=== PATIENT | female | born 1985 | race Caucasian/White ===

== ENCOUNTER 2016-08-09 19:44 | Emergency (ER) | payer BC ==
[~2016-08-09] VITALS: Ht 160 cm; Wt 68.2 kg
[~2016-08-09 19:44] MED LIST: ANTIVERT 25MG25 MG PO; DEPO-PROVER400 MG/ML; MEDROL 4MG DOSPA4 MG PO
[2016-08-09] MEDS ORDERED: PRENATAL1 TA7 PO (19:52)
[2016-08-09 20:27] LABS: BASO % 0.4 % (0.0-2.0); EOS # 0.2 (0.0-0.7); EOS % 1.7 % (0-4.0); GRAN # 6.2 (1.4-6.5); GRAN % 61.5 % (42.2-75.2); HEMATOCRIT 40.9 % (37.0-47.0); HEMOGLOBIN 14.2 g/dl (12.5-16.0); LYMPH # 2.9 (1.2-3.4); LYMPH % 29.1 % (20.0-51.0); MEAN CELL VOLUME 85 fl (80.0-100.0); MEAN CORPUSCULAR HEMOGLOBIN 30 pg (27.0-31.0); MEAN CORPUSCULAR HGB CONC 35 g/dl (33.0-37.0); MONO # 0.7 (0.1-0.6); MONO % 7.1 % (1.7-9.3); PLATELET COUNT 169 K/mm3 (130-400); RED BLOOD COUNT 4.79 M/mm3 (4.10-5.30); REDCELL DISTRIBUTION WIDTH-CV 12.5 % (11.5-14.5); WHITE BLOOD COUNT 10.1 K/mm3 (4.8-10.8)
[2016-08-09 20:31] LABS: PH 6 (5-8); SQUAMOUS EPITHELIAL 0-2 /hpf; URINE APPEARANCE Clear; URINE BACTERIA Rare /hpf; URINE BILIRUBIN Negative (NEGATIVE); URINE BLOOD 3+ (NEGATIVE); URINE COLOR Straw; URINE GLUCOSE Negative (NEGATIVE); URINE KETONE Negative (NEGATIVE); URINE RBC 0-2 /hpf; URINE UROBILINOGEN Negative (NEGATIVE); URINE WBC 0-2 /hpf
[2016-08-09 22:21] VITALS: BP 120/70; PULSE 84; TEMP 98.4
== END 2016-08-09 22:26 | disposition home or self-care (01) ==
LOC: COL.ER 19:44
PROVIDERS: Nurse Practitioner
DX: O20.0 Threatened abortion (principal); Z3A.01 Less than 8 weeks gestation of pregnancy

== ENCOUNTER 2016-08-10 22:24 | Emergency (ER) | payer BC ==
[~2016-08-10] VITALS: Ht 157.5 cm; Wt 68.2 kg
[~2016-08-10 22:24] MED LIST changes: +PRENATAL1 TA7 PO
[2016-08-10 22:29] VITALS: TEMP 98.9
[2016-08-10 23:11] LABS: BASO % 0.3 % (0.0-2.0); EOS # 0.1 (0.0-0.7); EOS % 1.2 % (0-4.0); GRAN # 7.6 (1.4-6.5); HEMATOCRIT 39.1 % (37.0-47.0); HEMOGLOBIN 13.5 g/dl (12.5-16.0); LYMPH # 2.7 (1.2-3.4); LYMPH % 23.8 % (20.0-51.0); MEAN CELL VOLUME 86 fl (80.0-100.0); MEAN CORPUSCULAR HEMOGLOBIN 30 pg (27.0-31.0); MEAN CORPUSCULAR HGB CONC 35 g/dl (33.0-37.0); MEAN PLATELET VOLUME 11.1 fl (7.4-10.4); MONO # 0.8 (0.1-0.6); MONO % 7.5 % (1.7-9.3); PLATELET COUNT 162 K/mm3 (130-400); RED BLOOD COUNT 4.57 M/mm3 (4.10-5.30); REDCELL DISTRIBUTION WIDTH-CV 12.6 % (11.5-14.5); WHITE BLOOD COUNT 11.3 K/mm3 (4.8-10.8)
[2016-08-11] MEDS ORDERED: ULTRAM 50MG TAB50 MG PO
[2016-08-11 01:20] VITALS: BP 105/65; PULSE 83
== END 2016-08-11 01:23 | disposition home or self-care (01) ==
LOC: COL.ER 22:24
PROVIDERS: Emergency Medicine
DX: O03.9 Complete or unspecified spontaneous abortion without complication (principal)
CPT/HCPCS: J1170; J2405; J7030

== ENCOUNTER 2016-11-28 23:07 | Emergency (ER) | payer BC ==
[~2016-11-28] VITALS: Ht 157.5 cm; Wt 66.8 kg
[~2016-11-28 23:07] MED LIST changes: +ULTRAM 50MG TAB50 MG PO
[2016-11-28 23:10] VITALS: TEMP 99.3
[2016-11-28] MEDS ORDERED: DICLEGIS (23:14)
[2016-11-28 23:46] LABS: BASO % 0.3 % (0.0-2.0); EOS % 0.4 % (0-4.0); GRAN # 7.1 (1.4-6.5); GRAN % 75.6 % (42.2-75.2); HEMATOCRIT 37.7 % (37.0-47.0); LYMPH # 1.4 (1.2-3.4); LYMPH % 14.4 % (20.0-51.0); MEAN CELL VOLUME 85 fl (80.0-100.0); MEAN CORPUSCULAR HEMOGLOBIN 29 pg (27.0-31.0); MEAN CORPUSCULAR HGB CONC 35 g/dl (33.0-37.0); MEAN PLATELET VOLUME 10.8 fl (7.4-10.4); MONO # 0.9 (0.1-0.6); MONO % 9.1 % (1.7-9.3); PLATELET COUNT 155 K/mm3 (130-400); RED BLOOD COUNT 4.44 M/mm3 (4.10-5.30); REDCELL DISTRIBUTION WIDTH-CV 12.7 % (11.5-14.5); WHITE BLOOD COUNT 9.5 K/mm3 (4.8-10.8)
[2016-11-28 23:56] LABS: CALCIUM 9.1 mg/dL (8.4-10.2); CREATININE, serum 0.49 mg/dL (0.52-1.25); POTASSIUM 3.5 mmol/L (3.4-5.0)
[2016-11-29 02:38] VITALS: BP 110/68; PULSE 102
== END 2016-11-29 02:40 | disposition home or self-care (01) ==
LOC: COL.ER 23:07
PROVIDERS: Nurse Practitioner
DX: O46.8X1 Other antepartum hemorrhage, first trimester (principal); Z3A.01 Less than 8 weeks gestation of pregnancy; Z98.890 Other specified postprocedural states
CPT/HCPCS: J2765; J7030

== ENCOUNTER → 2017-09-10 | Outpatient (CLI) | payer BC ==
[~2017-09-10] MED LIST changes: +DICLEGIS
== END ==
LOC: COL.RAD 10:30
DX: O99.283 Endocrine, nutritional and metabolic diseases complicating pregnancy, third trimester (principal); E01.8 Other iodine-deficiency related thyroid disorders and allied conditions; Z3A.28 28 weeks gestation of pregnancy

== ENCOUNTER 2017-11-15 01:39 | Outpatient (CLI) | payer BC ==
[~2017-11-15] VITALS: Ht 157.5 cm; Wt 82.3 kg
[2017-11-15 01:54] VITALS: BP 124/79; PULSE 90; TEMP 97.9
[2017-11-15] MEDS ORDERED: PRENATAL1 TA7 PO (01:59)
[2017-11-15] MEDS ORDERED: ZOVIRAX400 MG PO (01:59)
[2017-11-15 02:00] VITALS: BP 124/79; PULSE 90; TEMP 97.9
[2017-11-15] MEDS ORDERED: FOLIC ACID 11 MG/TA1 PO (02:00)
== END 2017-11-15 03:15 | disposition home or self-care (01) ==
LOC: LDRO 01:39
DX: O62.9 Abnormality of forces of labor, unspecified (principal); Z3A.37 37 weeks gestation of pregnancy

== ENCOUNTER 2017-11-15 08:51 | Inpatient (IN) | payer BC ==
[~2017-11-15] VITALS: Ht 157.5 cm; Wt 82.3 kg
[2017-11-15] VITALS (29 sets, daily range): BP systolic 94–149; BP diastolic 49–77; PULSE 81–104; TEMP 97.8–98.5
[~2017-11-15 08:51] MED LIST changes: +FOLIC ACID 11 MG/TA1 PO; +ZOVIRAX400 MG PO
[2017-11-15 10:38] LABS: BASO % 0.2 % (0.0-2.0); EOS % 0.1 % (0-4.0); GRAN # 11.2 (1.4-6.5); GRAN % 86.3 % (42.2-75.2); HEMATOCRIT 38.4 % (37.0-47.0); HEMOGLOBIN 13.3 g/dl (12.5-16.0); LYMPH # 1.2 (1.2-3.4); LYMPH % 9.2 % (20.0-51.0); MEAN CELL VOLUME 88 fl (80.0-100.0); MEAN CORPUSCULAR HEMOGLOBIN 31 pg (27.0-31.0); MEAN CORPUSCULAR HGB CONC 35 g/dl (33.0-37.0); MEAN PLATELET VOLUME 12.5 fl (7.4-10.4); MONO # 0.5 (0.1-0.6); MONO % 3.7 % (1.7-9.3); PLATELET COUNT 143 K/mm3 (130-400); RED BLOOD COUNT 4.36 M/mm3 (4.10-5.30); REDCELL DISTRIBUTION WIDTH-CV 14.4 % (11.5-14.5)
[2017-11-16 02:45] VITALS: BP 101/74; PULSE 88; TEMP 97.6
[2017-11-16 08:30] VITALS: BP 122/69; PULSE 89; TEMP 98
[2017-11-16 16:10] VITALS: BP 125/70; PULSE 89; TEMP 97.5
[2017-11-16 21:00] VITALS: BP 112/65; PULSE 89; TEMP 97.9
[2017-11-17 06:46] VITALS: BP 104/71; PULSE 78; TEMP 98.5
[2017-11-17] MEDS ORDERED: IBU600 MG PO (11:08)
== END 2017-11-17 13:30 | disposition home or self-care (01) | DRG 775 ==
LOC: LDRO 08:51 → LDR 08:55 → OB 21:21
PROVIDERS: Obstetrics & Gynecology
PROC: 10E0XZZ Delivery of Products of Conception, External Approach (ICD-10-PCS; principal; 2017-11-15)
PROC: 0KQM0ZZ Repair Perineum Muscle, Open Approach (ICD-10-PCS; 2017-11-15)
PROC: 0UQMXZZ Repair Vulva, External Approach (ICD-10-PCS; 2017-11-15)
PROC: 0HB9XZZ Excision of Perineum Skin, External Approach (ICD-10-PCS; 2017-11-15)
DX: O70.1 Second degree perineal laceration during delivery (principal); Z37.0 Single live birth; O71.82 Other specified trauma to perineum and vulva; Z3A.37 37 weeks gestation of pregnancy; Z22.330 Carrier of Group B streptococcus; L91.8 Other hypertrophic disorders of the skin
CPT/HCPCS: J2590; J2795; J7120

== ENCOUNTER 2021-01-18 23:02 | Outpatient (CLI) | payer OTHER ==
[~2021-01-18] VITALS: Ht 157.5 cm; Wt 87.7 kg
[~2021-01-18 23:02] MED LIST changes: +IBU600 MG PO
--- NOTE | 2021-01-18 23:15 | NUR ---
G4L1 at 38 weeks arrives to hospital with complaint of leaking fluid. Pt reports she stood up and felt large gush of fluid but has not had more leaking since. Pt denies feeling strong contractions, denies vaginal bleeding, and reports feeling good movement. Pt denies problems this . Clean gown on. Pt oriented to room, bed in low and locked position, call light within reach. US and toco explained and applied. Vital signs obtained. Admission assessment started. Reviewed plan of care with patient and spouse. Amnitrace negative SVE 3-4/75/-3, no fluid on exam glove. ROM plus obtained.
[2021-01-18 23:30] VITALS: BP 128/81; PULSE 112; TEMP 98.6
[2021-01-18] MEDS ORDERED: PRENATAL TABLET PO (23:46)
[2021-01-18] MEDS ORDERED: SYNTHROID 0.0.025 MG PO (23:47)
[2021-01-18] MEDS ORDERED: ZOVIRAX400 MG PO (23:47)
--- NOTE | 2021-01-19 00:40 | NUR ---
Pt updated on lab results. Reports feeling some contractions but describes them as mild cramping. Denies more leaking of fluid. Updated on discharge plan, pt verbalizes understanding. Pt and spouse seen ambulating off unit.
== END 2021-01-19 00:44 | disposition home or self-care (01) ==
LOC: LDRO 23:02 → LDR 23:15 → LDRO 01-19 00:44
DX: O42.92 Full-term premature rupture of membranes, unspecified as to length of time between rupture and onset of labor (principal); Z3A.38 38 weeks gestation of pregnancy
CPT/HCPCS: OP

== ENCOUNTER 2021-01-22 06:10 | Inpatient (IN) | payer OTHER ==
[~2021-01-22] VITALS: Ht 157.5 cm; Wt 88.2 kg
[2021-01-22] VITALS (14 sets, daily range): BP systolic 95–121; BP diastolic 53–72; PULSE 85–108; TEMP 98
[~2021-01-22 06:10] MED LIST changes: +PRENATAL TABLET PO; +SYNTHROID 0.0.025 MG PO
[2021-01-22 18:59] LABS: BASO % 0.3 % (0.0-2.0); EOS # 0.1 (0.0-0.7); EOS % 0.8 % (0-4.0); GRAN % 71.3 % (42.2-75.2); HEMATOCRIT 38.5 % (37.0-47.0); LYMPH # 2.6 (1.2-3.4); LYMPH % 20.4 % (20.0-51.0); MEAN CELL VOLUME 88 fl (80.0-100.0); MEAN CORPUSCULAR HEMOGLOBIN 30 pg (27.0-31.0); MEAN CORPUSCULAR HGB CONC 34 g/dl (33.0-37.0); MEAN PLATELET VOLUME 11.7 fl (7.4-10.4); MONO # 0.8 (0.1-0.6); MONO % 6.4 % (1.7-9.3); PLATELET COUNT 166 K/mm3 (130-400)
--- NOTE | 2021-01-22 19:12 | NUR ---
1905 BRODIE Miles to room to place epidural. Patient sits upright on the side of the bed for epidural placement. FHR difficult to monitor in this position and intermittently monitors maternal HR as it coorelates with maternal spO2 heart rate tracing. Single shot administered at 1911. See anesthesia record for details of procedure. 1914 Patient wedged to left side in bed.
--- NOTE | 2021-01-22 19:30 | NUR ---
Patient declined covid-19 test.
--- NOTE | 2021-01-22 19:40 | NUR ---
1928 FHR deceleration down to 80 bpm lasting 8 minutes noted. During this time patient turned to high left side and IVF bolus initiated. SVE 9-10/100/0. BP: 95/53. 1934 Ephedrine 10[address] given IV. Dr. Arnold called and updated and is on his way to the hospital. 1939 BP: 98/62, FHR without decelerations.
--- NOTE | 2021-01-22 20:08 | NUR ---
1947 Dr. Arnold to room, reviews FHR tracing and discusses plan of care. 1950 SVE and AROM by Dr. Arnold. Complete/+2 with clear fluid noted. Patient prepped for delivery and begins pushing with contractions. 2007 Spontaneous vaginal delivery of viable female by Dr. Arnold. Cord clamped and cut and to the care of the [facility] RN. 2012 Spontaneous delivery of placenta by Dr. Arnold. Pitocin infusing at 333ml/hr per orders and protocol. Fundus firm with massage. Repair of 2nd degree laceration by Dr. Arnold.
[2021-01-23 00:30] VITALS: BP 126/72; PULSE 98; TEMP 98.1
[2021-01-23 04:40] VITALS: BP 102/62; PULSE 85; TEMP 97.8
[2021-01-23 08:30] VITALS: BP 112/59; PULSE 85; TEMP 97.6
--- NOTE | 2021-01-23 10:44 | NUR ---
Initial visit; Parents thanked Aerographer for offering congratulations and God's blessings for the of their son. Aerographer thanked family for choosing our hospital.
[2021-01-23 12:45] VITALS: BP 108/65; PULSE 86; TEMP 98.2
[2021-01-23 16:30] VITALS: BP 108/66; PULSE 80; TEMP 97.6
[2021-01-23 20:30] VITALS: BP 111/55; PULSE 90; TEMP 98
[2021-01-24 07:30] VITALS: BP 109/73; PULSE 89; TEMP 98.2
[2021-01-24] MEDS ORDERED: IBU600 MG PO (08:24)
== END 2021-01-24 12:55 | disposition home or self-care (01) | DRG 806 ==
LOC: LDRO 06:10 → LDR 18:43 → OB 18:43
PROVIDERS: Obstetrics & Gynecology; ADMIT Student in an Organized Health Care Education/Training Program
PROC: 10E0XZZ Delivery of Products of Conception, External Approach (ICD-10-PCS; principal; 2021-01-22)
PROC: 0KQM0ZZ Repair Perineum Muscle, Open Approach (ICD-10-PCS; 2021-01-22)
PROC: 3E033VJ Introduction of Other Hormone into Peripheral Vein, Percutaneous Approach (ICD-10-PCS; 2021-01-22)
DX: O99.284 Endocrine, nutritional and metabolic diseases complicating childbirth (principal); O98.52 Other viral diseases complicating childbirth; Z37.0 Single live birth; B00.9 Herpesviral infection, unspecified; Z3A.38 38 weeks gestation of pregnancy; E03.9 Hypothyroidism, unspecified; O70.1 Second degree perineal laceration during delivery
CPT/HCPCS: J2590; J7120